=== PATIENT | female | born 1985 | race Hispanic/Latino ===

== ENCOUNTER 2018-08-05 22:33 | Emergency (ER) | payer MEDICAID ==
--- NOTE | 2018-08-06 01:14 | ED PDOC ---
Arrival/HPI - General Historian: Patient - History of Present Illness Narrative History of Present Illness (Text): 08/06/18 01:14 Pt is a 33 to female with no PMH who presents with chest pain and anxiety which was brought on by the sudden of her close friend 2 weeks ago. The pain and anxiety comes and goes for the past 2 weeks, it typically lasts 20 to 60 mins at a time. Talking about the event makes the pain/anxiety worse, laying down flat helps to improve. Time/Duration: 1 week Symptom Onset: Gradual Symptom Course: Unchanged Quality: Pressure <Raf Gaxiolaron - Last Filed: 08/06/18 03:18> <Ann García - Last Filed: 08/06/18 06:52> - General Chief Complaint: Chest Pain Past Medical History - Psychiatric Hx Substance Use: No <Raf Gaxiolaron - Last Filed: 08/06/18 03:18> Family/Social History Family/Social History: No Known Family HX Smoking Status: Never Smoked Hx Alcohol Use: No Hx Substance Use: No <Raf Gaxiola - Last Filed: 08/06/18 03:18> Allergies/Home Meds <Raf Gaxiolaron - Last Filed: 08/06/18 03:18> <Ann García - Last Filed: 08/06/18 06:52> Allergies/Adverse Reactions: Allergies No Known Allergies Allergy (Verified 08/05/18 23:26) Home Medications: Home Meds Medication Instructions Recorded Confirmed No Known Home Med 08/05/18 08/05/18 Physical Exam Vital Signs Temp Pulse Resp BP Pulse Ox 08/05/18 23:26 97.9 F 78 18 134/86 100 08/05/18 22:42 70 Temperature: Afebrile Blood Pressure: Normal Pulse: Regular Respiratory Rate: Normal Appearance: Positive for: Well-Appearing <Raf Gaxiolaron - Last Filed: 08/06/18 03:18> Vital Signs Temp Pulse Resp BP Pulse Ox 08/06/18 03:26 98.1 F 72 16 103/64 96 08/05/18 23:26 97.9 F 78 18 134/86 100 08/05/18 22:42 70 <Ann García - Last Filed: 08/06/18 06:52> Medical Decision Making ED Course and Treatment: 08/06/18 01:23 EKG: NSR, no signs of ST or T wave abnormality 08/06/18 03:14 Pt seen, examined, assessment and plan discussed with Dr Raquel Gaxiola PGY1 <Raf Gaxiola - Last Filed: 08/06/18 03:18> ED Course and Treatment: Patient given 0.25mg xanax PO with improvement in symptoms. EKG (in addition to interpretation above- also normal axis and intervals) and CXR unremarkable. Stable for discharge home. Advised outpatient followup with PMD. Return to the ED for any new or worsening symptoms. - RAD Interpretation Narrative RAD Interpretations (Text): No acute disease Radiology Orders: 08/06/18 01:29 CXR [CHEST PORTABLE] [RAD] Stat Supervisor Cabinetmaker: ED Physician - Medication Orders Current Medication Orders: Discontinued Medications Alprazolam (Xanax) 0.25 mg PO STAT STA; Protocol Stop: 08/06/18 01:31 Last Admin: 08/06/18 02:00 Dose: 0.25 mg <Ann García - Last Filed: 08/06/18 06:52> Disposition/Present on Arrival - Present on Arrival Any Indicators Present on Arrival: No History of DVT/PE: No History of Uncontrolled Diabetes: No Urinary Catheter: No History of Decub. Ulcer: No History Surgical Site Infection Following: None - Disposition Have Diagnosis and Disposition been Completed?: Yes Disposition Time: 03:18 <Raf Gaxiola - Last Filed: 08/06/18 03:18> - Present on Arrival Any Indicators Present on Arrival: No <Ann García - Last Filed: 08/06/18 06:52> - Disposition Diagnosis: Anxiety Disposition: HOME/ ROUTINE Condition: GOOD Discharge Instructions (ExitCare): Anxiety, Adult (DC) Print Language: ROMANSH Additional Instructions: MASSIEL DANG, thank you for letting us take care of you today. Your provider was Ann García MD and you were treated for CHEST PAINS. The emergency medical care you received today was directed at your acute symptoms. If you were prescribed any medication, please fill it and take as directed. It may take several days for your symptoms to resolve. Return to the Emergency Department if your symptoms worsen, do not improve, or if you have any other problems. Please contact your doctor or call one of the physicians/clinics you have been referred to that are listed on the Patient Visit Information form that is included in your discharge packet. Bring any paperwork you were given at dis charge with you along with any medications you are taking to your follow up visit. Our treatment cannot replace ongoing medical care by a primary care provider outside of the emergency department. Thank you for allowing the [facility] team to be part of your care today. If you had an X-Ray or CT scan: A Radiologist will review the ED reading if any change in treatment is needed we will contact you. If you had a blood, urine, or wound culture: It will take several days for the results, if any change in treatment is needed we will contact you. If you had an STI test: It will take 48 hours for the results. Please call after 1 week if you have not heard back. Referrals: Eri Woodruff MD [Primary Care Provider] - Follow up with primary Forms: [email or web address] ([employer])
[2018-08-06 03:31] VITALS: BP 103/64; PULSE 72; RESP 16; TEMP 98.1; O2SAT 96
--- NOTE | 2018-08-06 08:34 | RAD ---
Date of service: 08/06/2018 HISTORY: chest pain COMPARISON: No prior. TECHNIQUE: 1 view obtained. FINDINGS: LUNGS: No active pulmonary disease. PLEURA: No significant pleural effusion identified, no pneumothorax apparent. CARDIOVASCULAR: No aortic atherosclerotic calcification present. Normal cardiac size. No pulmonary vascular congestion. OSSEOUS STRUCTURES: No significant abnormalities. VISUALIZED UPPER ABDOMEN: Normal. OTHER FINDINGS: None. IMPRESSION: No active disease.
--- NOTE | 2018-08-06 10:44 | CARD ---
APPROVED REPORT Date of service: 08/05/2018 EKG Measurement Heart [id number] <Conclusion> Normal sinus rhythm Normal ECG
== END 2018-08-06 03:26 | disposition home or self-care (01) ==
LOC: ED 22:33
DX: F41.9 Anxiety disorder, unspecified (principal)